=== PATIENT | male | born 1985 | race Caucasian/White ===

== ENCOUNTER 2017-04-04 13:46 | Emergency (ER) | payer BC ==
[2017-04-04 15:46] LABS: Basophils % (Auto) 0.6 % (0.0-1.8); Eosinophils % (Auto) 0.7 % (0.0-4.3); Hematocrit 34.6 % (35.5-45.6); Hemoglobin 11.6 gm/dl (11.8-15.2); Mean Corpuscular HGB Conc 34 % (32-34); Mean Corpuscular Hemoglobin 30 pg (28-32); Mean Corpuscular Volume 88 fl (84-94); Platelet Count 328 K/mm3 (140-440); Red Blood Count 3.93 M/mm3 (3.65-5.03); Red Cell Distribution Width 14.7 % (13.2-15.2); White Blood Count 15.5 K/mm3 (4.5-11.0)
[2017-04-04 16:02] LABS: Creatine Kinase MB 1.7 ng/mL (0.0-4.0)
[2017-04-04 16:04] LABS: Alanine Aminotransferase 11 units/L (7-56); Albumin 3.7 g/dL (3.9-5); Albumin/Globulin Ratio 0.8 %; Alkaline Phosphatase 91 units/L (35-129); Anion Gap 16 mmol/L; BUN/Creatinine Ratio 11.81; Blood Urea Nitrogen 13 mg/dL (9-20); Calcium 9.2 mg/dL (8.4-10.2); Carbon Dioxide 30 mmol/L (22-30); Chloride 99.8 mmol/L (98-107); Creatine Kinase 281 units/L (55-170); Glucose 92 mg/dL (75-100); Potassium 4.2 mmol/L (3.6-5.0); Sodium 142 mmol/L (137-145); Total Protein 8.1 g/dL (6.3-8.2)
[2017-04-04] MEDS ORDERED: APRESOLINE IV ONE (18:36)
[2017-04-04] MEDS ORDERED: NORMODYNE IV ONE (19:28)
--- NOTE | 2017-04-04 20:46 | Emergency Department Report ---
HPI - General Chief Complaint: High BP Time Seen by Provider: 04/04/17 16:08 - HPI HPI: The patient is a 31-year-old male who presents for evaluation of fatigue elevated blood pressure. He says that for the past 2-3 days he has been experiencing tiredness, constant, moderate in severity, exacerbated with activity, improved with rest. He shares that his blood pressure is no significant elevated throughout this time, and was found to be greater than 220/ 110 earlier today. The patient denies fever, headache, neck pain, paresthesias, focal motor weakness, blurry vision, ear pain, tinnitus, chest pain, hemoptysis , dyspnea, abdominal pain, confusion or altered mental status, or recent URI or diarrhea. ED Past Medical Hx - Past Medical History Previous Medical History?: Yes Hx Hypertension: Yes - Surgical History Past Surgical History?: No - Social History Smoking Status: Never Smoker Substance Use Type: None - Medications Home Medications: Home Medications Medication Instructions Recorded Confirmed Last Taken Type Carvedilol [Coreg] 25 mg PO BID #31 tablet 04/04/17 Unknown Rx Furosemide [Lasix TAB] 40 mg PO QDAY 04/04/17 04/04/17 Unknown History Lisinopril [Zestril TAB] 20 mg PO QDAY #31 tablet 04/04/17 Unknown Rx Metolazone 5 mg PO DAILY 04/04/17 04/04/17 Unknown History Potassium Chloride [Klor-Con 10] 40 meq PO BID 04/04/17 04/04/17 Unknown History Spironolactone [Aldactone] 50 mg PO QDAY 04/04/17 04/04/17 Unknown History ED Review of Systems ROS: Stated complaint: BLOOD PRESSURE HIGH Other details as noted in HPI Constitutional: denies: fever; reports fatigue ENT: denies: throat or neck pain Respiratory: denies: cough, shortness of breath Cardiovascular: denies: chest pain Endocrine: denies unexplained weight loss or gain Gastrointestinal: denies: abdominal pain, nausea Genitourinary: denies: dysuria Musculoskeletal: denies: leg swelling Skin: denies: rash Neurological: denies: headache Hematological/Lymphatic: denies: easy bleeding or easy bruising Psych: denies sadness or hopelessness Physical Exam - Physical Exam Vital Signs: Vital Signs 07/19/17 07/19/17 07/19/17 15:09 16:17 18:30 Temperature 98.0 F Pulse Rate 102 H 101 H 97 H Respiratory 18 18 Rate Blood Pressure 196/131 Blood Pressure 163/112 188/123 [Left] O2 Sat by Pulse 100 96 97 Oximetry 04/04/17 04/04/17 04/04/17 19:12 19:33 19:45 Temperature Pulse Rate 99 H 105 H Respiratory Rate Blood Pressure 188/123 187/116 Blood Pressure 170/103 [Left] O2 Sat by Pulse Oximetry 04/04/17 04/04/17 19:46 20:09 Temperature Pulse Rate 105 H 96 H Respiratory 15 Rate Blood Pressure Blood Pressure 187/116 159/97 [Left] O2 Sat by Pulse 98 Oximetry Physical Exam: General: well-nourished, well-developed, no acute distress, patient is morbidly obese Head: Normocephalic, atraumatic Eyes: normal sclera ENT: Mucous membranes are pink and moist Neck: trachea midline, neck supple, No neck stiffness, no cervical adenopathy Respiratory: Breath sounds equal bilaterally, no wheezing, rales, or rhonchi Cardio: S1 and S2 present, no murmurs, rubs, gallops, capillary refill is brisk Abdomen: Normoactive bowel sounds, soft abdomen, no rigidity, no guarding or rebound tenderness Musc: No pitting edema Skin: No rash Neuro: no facial drooping, normal speech Psych: Normal affect ED Course Vital Signs 04/04/17 04/04/17 04/04/17 15:09 16:17 18:30 Temperature 98.0 F Pulse Rate 102 H 101 H 97 H Respiratory 18 18 Rate Blood Pressure 196/131 Blood Pressure 163/112 188/123 [Left] O2 Sat by Pulse 100 96 97 Oximetry 04/04/17 04/04/17 04/04/17 19:12 19:33 19:45 Temperature Pulse Rate 99 H 105 H Respiratory Rate Blood Pressure 188/123 187/116 Blood Pressure 170/103 [Left] O2 Sat by Pulse Oximetry 04/04/17 04/04/17 19:46 20:09 Temperature Pulse Rate 105 H 96 H Respiratory 15 Rate Blood Pressure Blood Pressure 187/116 159/97 [Left] O2 Sat by Pulse 98 Oximetry ED Medical Decision Making - Lab Data Result diagrams: 04/04/17 15:28 04/04/17 15:28 - Medical Decision Making The patient was seen and examined by myself. The patient is placed on a manager cardiac and continuous pulse ox. On initial evaluation, the patient was found to be in no distress. Evaluation orders were placed. The patient is given IV hydralazine IV labetalol for elevated blood pressure. Lab results revealed nonspecific leukocytosis, WBC 15, likely secondary to steroid use. On reexamination the patient's blood pressure was found to decrease outside of range concerning for hypertensive emergency. The patient is stable for discharge with outpatient follow-up. The patient is given follow-up and return instructions. The patient expressed understanding and agreed with the plan. The patient is discharged in stable condition. Critical care attestation.: If time is entered above; I have spent that time in minutes in the direct care of this critically ill patient, excluding procedure time. ED Disposition Clinical Impression: Hypertensive urgency, Tiredness Disposition: DC-01 TO HOME OR SELFCARE Is pt being admited?: No Does the pt Need Aspirin: No Condition: Stable Instructions: Hypertension (ED), Fatigue (ED) Prescriptions: Carvedilol [Coreg] 25 mg PO BID #31 tablet Lisinopril [Zestril TAB] 20 mg PO QDAY #31 tablet Referrals: PRIMARY CARE, [Primary Care Provider] - 3-5 Days Time of Disposition: 20:43
[2017-04-04 20:59] VITALS: BP 146/99
--- NOTE | 2017-04-05 07:34 | XRay Report ---
PORTABLE CHEST INDICATION: Chest pain. COMPARISON: None similar at this institution. FINDINGS: Portable, frontal chest radiograph suggests mild exaggerated cardiomediastinal silhouette and slightly prominent bronchovascular markings centrally. No pleural effusions or CHF. Grossly intact bones. CONCLUSION: No significant acute chest process, as described. Thank you for the opportunity to participate in this patient's care.
== END 2017-04-04 21:00 | disposition home or self-care (01) ==
LOC: ED 13:46
DX: I10 Essential (primary) hypertension (principal)
CPT/HCPCS: 36415; 71010; 80053; 82550; 82553; 83880; 84484; 85025; 96374; 96375; 99284; J0360